=== PATIENT | female | born 1960 | race Caucasian/White ===

== ENCOUNTER 2021-09-20 11:59 | Emergency (ER) | payer OTHER ==
[2021-09-20] MEDS ORDERED: CYCLOBENZAPRINE10 MG PO (13:23)
[2021-09-20] MEDS ORDERED: MOTRIN600 MG PO (13:23)
== END 2021-09-20 14:30 | disposition home or self-care (01) ==
LOC: FER 11:59
DX: S16.1XXA Strain of muscle, fascia and tendon at neck level, initial encounter (principal); Z88.1 Allergy status to other antibiotic agents; Z91.040 Latex allergy status; V43.52XA Car driver injured in collision with other type car in traffic accident, initial encounter
CPT/HCPCS: 99283